=== PATIENT | male | born 1940 | race Caucasian/White ===

== ENCOUNTER 2017-09-02 21:34 | Inpatient (IN) | payer OTHER ==
[~2017-09-02] VITALS: Ht 172.7 cm; Wt 85.5 kg
[~2017-09-02 21:34] MED LIST: ACID REDUCER 1150 MG PO; AMLODIPINE BESYL5 MG PO; ASPIR 8181 M1 PO; ATORVASTATIN CA10 MG PO; CARDIZEM CD120 MG PO; LO-DOSE ASPIRIN81 M1 PO; LOPRESSOR25 MG PO; NEXIUM 24HR20 M1 PO; PEPCID AC20 M1 PO; PLAVIX75 MG PO; PRAVASTATIN SOD40 MG PO; PROTONIX40 MG PO; ZESTRIL2.5 MG PO
[2017-09-02 22:31] LABS: HEMATOCRIT 28.7 % (38.0-50.0); MCH 29.7 PG (29.0-34.0); MCHC 34.5 G/DL (30.0-36.0); MEAN PLAT.VOLUME 9.4 uM^3 (9.0-12.4); NRBC (%) 0.1 /100 WBC (0-0); PLATELET COUNT 503 K/uL (156-360); RBC DIS.WIDTH-CV 13.2 % (11.8-14.6); RBC DIS.WIDTH-SD 39.6 % (39-53); RED BLOOD COUNT 3.33 M/uL (4.00-5.50); WHITE BLOOD COUNT 19.5 K/uL (4.1-10.2)
[2017-09-02 22:32] LABS: MCV 86.2 FL (86-99)
[2017-09-02 22:36] LABS: CHLORIDE 99 mEq/L (99-109); POTASSIUM 5.3 mEq/L (3.7-5.4); SODIUM 129 mEq/L (136-147)
[2017-09-02 22:38] LABS: GLUCOSE 147 mg/dL (70-99)
[2017-09-02 22:39] LABS: ANION GAP 15 MEQ/L (2-14)
[2017-09-02 22:40] LABS: TOTAL BILIRUBIN 0.4 mg/dL (0.0-1.0)
[2017-09-02 22:42] LABS: ALKALINE PHOSPHATASE 85 IU/L (3-129); GFR ESTIMATE (CALCULATED) 20 mL/min/
[2017-09-02 22:43] LABS: UREA NITROGEN (BUN) 96 mg/dL (9-23)
[2017-09-02 22:44] LABS: DIRECT BILIRUBIN 0.2 mg/dL (0.0-0.3)
[2017-09-02 22:45] LABS: LIPASE 178 U/L (1.0-51.0)
[2017-09-02 22:46] LABS: TROP-I INTERPRETATION NEGATIVE; TROPONIN-I < 0.01 ng/mL (0.0-0.30)
[2017-09-03] MEDS ORDERED: LISINOPRIL10 MG PO (00:03)
[2017-09-03] MEDS ORDERED: LO-DOSE ASPIRIN81 M1 PO (00:05)
[2017-09-03] MEDS ORDERED: LOPRESSOR25 MG PO (00:05)
[2017-09-03] MEDS ORDERED: ACID REDUCER200 MG PO (00:10)
[2017-09-03 03:25] VITALS: BP 104/55
[2017-09-03 03:43] LABS: URIC ACID 10.9 mg/dL (3.1-9.2)
[2017-09-03 05:55] LABS: EOSINOPHIL (%) 0.2 % (0-5); HEMATOCRIT 26.6 % (38.0-50.0); IMMATURE GRANULOCYTE (%) 0.8 % (0.0-0.7); IMMATURE GRANULOCYTE COUNT 0.1 K/uL; INSTRUMENT ABS NEUTROPHIL CT 12.7 K/uL; LYMPHOCYTE COUNT 1.1 K/uL (1.0-2.8); MCH 29.6 PG (29.0-34.0); MCHC 33.5 G/DL (30.0-36.0); MCV 88.4 FL (86-99); MEAN PLAT.VOLUME 9.5 uM^3 (9.0-12.4); MONOCYTE (%) 11.6 % (3-12); MONOCYTE COUNT 1.8 K/uL (0-0.8); NEUTROPHIL (%) 80.4 % (45-76); NEUTROPHIL COUNT 12.7 K/uL (1.8-6.4); NRBC (%) 0.1 /100 WBC (0-0); PLATELET COUNT 410 K/uL (156-360); RBC DIS.WIDTH-CV 13.3 % (11.8-14.6); RBC DIS.WIDTH-SD 41.4 % (39-53); RED BLOOD COUNT 3.01 M/uL (4.00-5.50); WHITE BLOOD COUNT 15.8 K/uL (4.1-10.2)
[2017-09-03 06:17] LABS: ANION GAP 11 MEQ/L (2-14); CHLORIDE 102 MEQ/L (99-109); GFR ESTIMATE (CALCULATED) 22 mL/min/; GLUCOSE 110 mg/dL (70-99); POTASSIUM 5.2 MEQ/L (3.7-5.4); SAMPLE HEMOLYSIS CHECK 0; SAMPLE ICTERIC CHECK 0; SAMPLE LIPEMIA CHECK 0; SODIUM 131 MEQ/L (136-147); UREA NITROGEN (BUN) 94 mg/dL (9-23)
[2017-09-03 07:17] VITALS: BP 116/62
[2017-09-03 09:28] LABS: ADD MIUA? NO; BILIRUBIN NEGATIVE; BLOOD NEGATIVE; COLOR YELLOW ((YELLOW)); GLUCOSE (STRIP) NEGATIVE; KETONES NEGATIVE; LEUKOCYTES NEGATIVE; NITRITE NEGATIVE; PROTEIN (STRIP) NEGATIVE; SPECIFIC GRAVITY 1.015 (1.000-1.030); UROBILINOGEN 0.2 MG/DL (0.2-1.0)
[2017-09-03 09:52] LABS: UR CREATININE CONCENTRATION 84.2 MG/DL
[2017-09-03 14:09] VITALS: BP 106/58
[2017-09-03 22:58] VITALS: BP 113/55
[2017-09-04 06:53] LABS: ANION GAP 12 MEQ/L (2-14); CHLORIDE 113 MEQ/L (99-109); GFR ESTIMATE (CALCULATED) 30 mL/min/; GLUCOSE 84 mg/dL (70-99); POTASSIUM 4.6 MEQ/L (3.7-5.4); SAMPLE HEMOLYSIS CHECK 0; SAMPLE ICTERIC CHECK 0; SAMPLE LIPEMIA CHECK 0; SODIUM 141 MEQ/L (136-147); UREA NITROGEN (BUN) 70 mg/dL (9-23)
[2017-09-04 07:00] VITALS: BP 113/62
[2017-09-04 15:57] VITALS: BP 123/65
[2017-09-04 23:23] VITALS: BP 123/68
[2017-09-05 06:31] LABS: HEMATOCRIT 26.1 % (38.0-50.0); MCH 29.4 PG (29.0-34.0); MCHC 32.2 G/DL (30.0-36.0); MCV 91.3 FL (86-99); MEAN PLAT.VOLUME 9.2 uM^3 (9.0-12.4); PLATELET COUNT 383 K/uL (156-360); RBC DIS.WIDTH-CV 14.2 % (11.8-14.6); RBC DIS.WIDTH-SD 44.8 % (39-53); RED BLOOD COUNT 2.86 M/uL (4.00-5.50); WHITE BLOOD COUNT 8.1 K/uL (4.1-10.2)
[2017-09-05 06:59] LABS: ANION GAP 14 MEQ/L (2-14); CHLORIDE 116 MEQ/L (99-109); GFR ESTIMATE (CALCULATED) 49 mL/min/; GLUCOSE 77 mg/dL (70-99); MAGNESIUM 2.5 mg/dl (1.3-2.7); POTASSIUM 4.2 MEQ/L (3.7-5.4); SAMPLE HEMOLYSIS CHECK 0; SAMPLE ICTERIC CHECK 0; SAMPLE LIPEMIA CHECK 0; SODIUM 148 MEQ/L (136-147); UREA NITROGEN (BUN) 52 mg/dL (9-23)
[2017-09-05 07:40] VITALS: BP 138/68
[2017-09-05 15:20] VITALS: BP 135/72
[2017-09-05 23:42] VITALS: BP 144/75
[2017-09-06 05:42] LABS: HEMATOCRIT 25.6 % (38.0-50.0); MCH 29.6 PG (29.0-34.0); MCHC 32.4 G/DL (30.0-36.0); MCV 91.4 FL (86-99); PLATELET COUNT 375 K/uL (156-360); RBC DIS.WIDTH-CV 13.9 % (11.8-14.6); RBC DIS.WIDTH-SD 45.1 % (39-53)
[2017-09-06 06:01] LABS: ANION GAP 13 MEQ/L (2-14); CHLORIDE 116 MEQ/L (99-109); GFR ESTIMATE (CALCULATED) > 59 mL/min/; GLUCOSE 79 mg/dL (70-99); MAGNESIUM 2.2 mg/dl (1.3-2.7); POTASSIUM 4.1 MEQ/L (3.7-5.4); SAMPLE HEMOLYSIS CHECK 0; SAMPLE ICTERIC CHECK 0; SAMPLE LIPEMIA CHECK 0; SODIUM 147 MEQ/L (136-147); UREA NITROGEN (BUN) 36 mg/dL (9-23)
[2017-09-06 06:36] LABS: ALKALINE PHOSPHATASE 62 IU/L (3-129); ANION GAP 16 MEQ/L (2-14); CHLORIDE 114 MEQ/L (99-109); GFR ESTIMATE (CALCULATED) > 59 mL/min/; GLUCOSE 79 mg/dL (70-99); POTASSIUM 4.1 MEQ/L (3.7-5.4); SAMPLE HEMOLYSIS CHECK 0; SAMPLE ICTERIC CHECK 0; SAMPLE LIPEMIA CHECK 0; SODIUM 147 MEQ/L (136-147); TOTAL BILIRUBIN 0.4 MG/DL (0.0-1.0); UREA NITROGEN (BUN) 36 mg/dL (9-23)
[2017-09-06 07:34] VITALS: BP 137/76
[2017-09-06 15:40] VITALS: BP 124/66
[2017-09-06 23:30] VITALS: BP 113/69
[2017-09-07 07:52] VITALS: BP 128/71
[2017-09-07 10:58] LABS: HEMATOCRIT 26.4 % (38.0-50.0); MCH 29.8 PG (29.0-34.0); MCHC 32.6 G/DL (30.0-36.0); MCV 91.3 FL (86-99); PLATELET COUNT 411 K/uL (156-360); RBC DIS.WIDTH-CV 13.9 % (11.8-14.6); RBC DIS.WIDTH-SD 45.2 % (39-53); RED BLOOD COUNT 2.89 M/uL (4.00-5.50)
[2017-09-07 11:33] LABS: ALKALINE PHOSPHATASE 61 IU/L (3-129); ANION GAP 14 MEQ/L (2-14); CHLORIDE 109 MEQ/L (99-109); GFR ESTIMATE (CALCULATED) > 59 mL/min/; GLUCOSE 79 mg/dL (70-99); POTASSIUM 3.9 MEQ/L (3.7-5.4); SAMPLE HEMOLYSIS CHECK 0; SAMPLE ICTERIC CHECK 0; SAMPLE LIPEMIA CHECK 0; SODIUM 143 MEQ/L (136-147); TOTAL BILIRUBIN 0.4 MG/DL (0.0-1.0); UREA NITROGEN (BUN) 31 mg/dL (9-23)
[2017-09-07 16:00] VITALS: BP 130/81
[2017-09-07 23:18] VITALS: BP 127/73
[2017-09-08 06:03] LABS: HEMATOCRIT 25.4 % (38.0-50.0); MCH 29.5 PG (29.0-34.0); MCHC 32.7 G/DL (30.0-36.0); MCV 90.4 FL (86-99); MEAN PLAT.VOLUME 8.6 uM^3 (9.0-12.4); PLATELET COUNT 375 K/uL (156-360); RBC DIS.WIDTH-CV 13.7 % (11.8-14.6); RBC DIS.WIDTH-SD 44.8 % (39-53); RED BLOOD COUNT 2.81 M/uL (4.00-5.50); WHITE BLOOD COUNT 13.2 K/uL (4.1-10.2)
[2017-09-08 06:37] LABS: ALKALINE PHOSPHATASE 100 IU/L (3-129); ANION GAP 11 MEQ/L (2-14); CHLORIDE 110 MEQ/L (99-109); GFR ESTIMATE (CALCULATED) > 59 mL/min/; GLUCOSE 79 mg/dL (70-99); POTASSIUM 3.9 MEQ/L (3.7-5.4); SAMPLE HEMOLYSIS CHECK 0; SAMPLE ICTERIC CHECK 0; SAMPLE LIPEMIA CHECK 0; SODIUM 142 MEQ/L (136-147); UREA NITROGEN (BUN) 27 mg/dL (9-23)
[2017-09-08 07:31] VITALS: BP 120/60
[2017-09-08 16:00] VITALS: BP 130/76
[2017-09-08 22:48] VITALS: BP 128/80
[2017-09-09 06:06] LABS: EOSINOPHIL (%) 0.4 % (0-5); EOSINOPHIL COUNT 0.1 K/uL (0-0.3); HEMATOCRIT 25.1 % (38.0-50.0); IMMATURE GRANULOCYTE (%) 0.8 % (0.0-0.7); IMMATURE GRANULOCYTE COUNT 0.2 K/uL; INSTRUMENT ABS NEUTROPHIL CT 16.1 K/uL; LYMPHOCYTE COUNT 0.7 K/uL (1.0-2.8); MCHC 32.7 G/DL (30.0-36.0); MCV 88.7 FL (86-99); MONOCYTE (%) 5.6 % (3-12); NEUTROPHIL (%) 88.9 % (45-76); NEUTROPHIL COUNT 16.1 K/uL (1.8-6.4); PLATELET COUNT 385 K/uL (156-360); RBC DIS.WIDTH-CV 14.1 % (11.8-14.6); RED BLOOD COUNT 2.83 M/uL (4.00-5.50); WHITE BLOOD COUNT 18.1 K/uL (4.1-10.2)
[2017-09-09 06:18] LABS: ANION GAP 7 MEQ/L (2-14); CHLORIDE 106 MEQ/L (99-109); GFR ESTIMATE (CALCULATED) > 59 mL/min/; GLUCOSE 96 mg/dL (70-99); POTASSIUM 3.6 MEQ/L (3.7-5.4); SAMPLE HEMOLYSIS CHECK 0; SAMPLE ICTERIC CHECK 0; SAMPLE LIPEMIA CHECK 0; SODIUM 136 MEQ/L (136-147); UREA NITROGEN (BUN) 24 mg/dL (9-23)
[2017-09-09 08:23] VITALS: BP 129/76
[2017-09-09 15:27] VITALS: BP 112/73
[2017-09-09 16:59] LABS: ADD MIUA? NO; BILIRUBIN NEGATIVE; BLOOD NEGATIVE; COLOR AMBER ((YELLOW)); GLUCOSE (STRIP) NEGATIVE; KETONES NEGATIVE; LEUKOCYTES NEGATIVE; NITRITE NEGATIVE; PROTEIN (STRIP) NEGATIVE; SPECIFIC GRAVITY 1.015 (1.000-1.030); UCUL ADDED? NO
[2017-09-09 23:49] VITALS: BP 122/79
[2017-09-10 06:04] LABS: EOSINOPHIL (%) 0.2 % (0-5); HEMATOCRIT 26.2 % (38.0-50.0); IMMATURE GRANULOCYTE (%) 0.6 % (0.0-0.7); IMMATURE GRANULOCYTE COUNT 0.1 K/uL; INSTRUMENT ABS NEUTROPHIL CT 14.8 K/uL; LYMPHOCYTE COUNT 0.6 K/uL (1.0-2.8); MCH 28.1 PG (29.0-34.0); MCHC 32.4 G/DL (30.0-36.0); MCV 86.5 FL (86-99); MEAN PLAT.VOLUME 8.9 uM^3 (9.0-12.4); MONOCYTE (%) 5.5 % (3-12); MONOCYTE COUNT 0.9 K/uL (0-0.8); NEUTROPHIL (%) 90.2 % (45-76); NEUTROPHIL COUNT 14.8 K/uL (1.8-6.4); PLATELET COUNT 420 K/uL (156-360); RBC DIS.WIDTH-CV 14.1 % (11.8-14.6); RBC DIS.WIDTH-SD 43.8 % (39-53); RED BLOOD COUNT 3.03 M/uL (4.00-5.50); WHITE BLOOD COUNT 16.4 K/uL (4.1-10.2)
[2017-09-10 06:24] LABS: ANION GAP 11 MEQ/L (2-14); CHLORIDE 105 MEQ/L (99-109); GFR ESTIMATE (CALCULATED) > 59 mL/min/; POTASSIUM 3.6 MEQ/L (3.7-5.4); SAMPLE HEMOLYSIS CHECK 0; SAMPLE ICTERIC CHECK 0; SAMPLE LIPEMIA CHECK 0; SODIUM 137 MEQ/L (136-147); UREA NITROGEN (BUN) 20 mg/dL (9-23)
[2017-09-10 06:25] LABS: GLUCOSE 64 mg/dL (70-99)
[2017-09-10 07:26] VITALS: BP 126/75
[2017-09-10 15:50] VITALS: BP 132/79
[2017-09-10 23:31] VITALS: BP 151/83
[2017-09-11 00:46] VITALS: BP 139/82
[2017-09-11 06:10] LABS: EOSINOPHIL (%) 0.1 % (0-5); HEMATOCRIT 25.8 % (38.0-50.0); IMMATURE GRANULOCYTE (%) 0.7 % (0.0-0.7); IMMATURE GRANULOCYTE COUNT 0.1 K/uL; LYMPHOCYTE COUNT 0.3 K/uL (1.0-2.8); MCH 28.1 PG (29.0-34.0); MCHC 32.6 G/DL (30.0-36.0); MCV 86.3 FL (86-99); MONOCYTE (%) 4.2 % (3-12); MONOCYTE COUNT 0.8 K/uL (0-0.8); PLATELET COUNT 380 K/uL (156-360); RBC DIS.WIDTH-CV 14.2 % (11.8-14.6); RBC DIS.WIDTH-SD 43.9 % (39-53); RED BLOOD COUNT 2.99 M/uL (4.00-5.50); WHITE BLOOD COUNT 18.3 K/uL (4.1-10.2)
[2017-09-11 06:32] LABS: ANION GAP 12 MEQ/L (2-14); CHLORIDE 105 MEQ/L (99-109); GFR ESTIMATE (CALCULATED) > 59 mL/min/; GLUCOSE 46 mg/dL (70-99); POTASSIUM 3.8 MEQ/L (3.7-5.4); SAMPLE HEMOLYSIS CHECK 0; SAMPLE ICTERIC CHECK 1; SAMPLE LIPEMIA CHECK 0; SODIUM 138 MEQ/L (136-147); UREA NITROGEN (BUN) 19 mg/dL (9-23)
[2017-09-11 08:04] VITALS: BP 119/67
[2017-09-11 11:15] VITALS: BP 115/62
[2017-09-11 15:40] VITALS: BP 128/76
[2017-09-11 19:27] VITALS: BP 119/70
[2017-09-11 23:34] VITALS: BP 131/68
[2017-09-12 03:23] VITALS: BP 127/71
[2017-09-12 05:23] LABS: EOSINOPHIL (%) 0.1 % (0-5); HEMATOCRIT 24.6 % (38.0-50.0); IMMATURE GRANULOCYTE (%) 0.6 % (0.0-0.7); IMMATURE GRANULOCYTE COUNT 0.1 K/uL; INSTRUMENT ABS NEUTROPHIL CT 15.6 K/uL; LYMPHOCYTE COUNT 0.4 K/uL (1.0-2.8); MCHC 32.9 G/DL (30.0-36.0); MCV 85.1 FL (86-99); MONOCYTE (%) 5.7 % (3-12); NEUTROPHIL (%) 91.2 % (45-76); NEUTROPHIL COUNT 15.6 K/uL (1.8-6.4); PLATELET COUNT 307 K/uL (156-360); RBC DIS.WIDTH-CV 14.5 % (11.8-14.6); RBC DIS.WIDTH-SD 44.4 % (39-53); RED BLOOD COUNT 2.89 M/uL (4.00-5.50); WHITE BLOOD COUNT 17.1 K/uL (4.1-10.2)
[2017-09-12 06:10] LABS: ANION GAP 12 MEQ/L (2-14); CHLORIDE 105 MEQ/L (99-109); GFR ESTIMATE (CALCULATED) > 59 mL/min/; POTASSIUM 3.7 MEQ/L (3.7-5.4); SAMPLE HEMOLYSIS CHECK 0; SAMPLE ICTERIC CHECK 1; SAMPLE LIPEMIA CHECK 0; SODIUM 135 MEQ/L (136-147); UREA NITROGEN (BUN) 24 mg/dL (9-23)
[2017-09-12 06:11] LABS: GLUCOSE 78 mg/dL (70-99)
[2017-09-12 07:30] VITALS: BP 130/71
[2017-09-12 11:00] VITALS: BP 134/75
[2017-09-12 16:39] VITALS: BP 111/62
[2017-09-12 19:33] VITALS: BP 119/74
[2017-09-12 23:18] VITALS: BP 126/72
[2017-09-13 03:53] VITALS: BP 125/70
[2017-09-13 06:40] LABS: EOSINOPHIL (%) 0.2 % (0-5); HEMATOCRIT 23.5 % (38.0-50.0); IMMATURE GRANULOCYTE (%) 0.8 % (0.0-0.7); IMMATURE GRANULOCYTE COUNT 0.1 K/uL; LYMPHOCYTE COUNT 0.4 K/uL (1.0-2.8); MCH 28.6 PG (29.0-34.0); MCHC 33.6 G/DL (30.0-36.0); MCV 85.1 FL (86-99); MEAN PLAT.VOLUME 9.6 uM^3 (9.0-12.4); MONOCYTE (%) 6.9 % (3-12); MONOCYTE COUNT 1.1 K/uL (0-0.8); NEUTROPHIL (%) 89.2 % (45-76); NRBC (%) 0.1 /100 WBC (0-0); PLATELET COUNT 268 K/uL (156-360); RBC DIS.WIDTH-CV 14.7 % (11.8-14.6); RBC DIS.WIDTH-SD 45.3 % (39-53); RED BLOOD COUNT 2.76 M/uL (4.00-5.50); WHITE BLOOD COUNT 15.6 K/uL (4.1-10.2)
[2017-09-13 07:03] LABS: ANION GAP 13 MEQ/L (2-14); CHLORIDE 103 MEQ/L (99-109); GFR ESTIMATE (CALCULATED) 57 mL/min/; GLUCOSE 72 mg/dL (70-99); POTASSIUM 3.7 MEQ/L (3.7-5.4); SAMPLE HEMOLYSIS CHECK 0; SAMPLE ICTERIC CHECK 1; SAMPLE LIPEMIA CHECK 0; SODIUM 135 MEQ/L (136-147); UREA NITROGEN (BUN) 30 mg/dL (9-23)
[2017-09-13 07:31] VITALS: BP 119/74
[2017-09-13 09:24] LABS: DIRECT BILIRUBIN 4.3 mg/dL (0.0-0.3)
[2017-09-13 09:28] LABS: ALKALINE PHOSPHATASE 509 IU/L (3-129); TOTAL BILIRUBIN 5.8 MG/DL (0.0-1.0)
[2017-09-13 10:55] VITALS: BP 125/75
[2017-09-13 11:08] LABS: POINT-OF-CARE METER ID UU13113725
[2017-09-13 11:34] LABS: POINT-OF-CARE METER ID UU13113725
[2017-09-13 14:14] LABS: POINT-OF-CARE METER ID UU13113819
[2017-09-13 15:35] VITALS: BP 120/66
[2017-09-13 19:20] VITALS: BP 119/70
[2017-09-13 23:16] VITALS: BP 118/66
[2017-09-14] VITALS (14 sets, daily range): BP systolic 101–136; BP diastolic 61–83
[2017-09-14 06:32] LABS: PTT 54.4 SEC (25-37)
[2017-09-14 06:36] LABS: PROTHROMBIN TIME 77.3 SEC (10.2-12.9)
[2017-09-14 06:57] LABS: INTER. NORMALIZED RATIO 6.7
[2017-09-14 09:50] LABS: EOSINOPHIL (%) 0 % (0-5); HEMATOCRIT 24.2 % (38.0-50.0); IMMATURE GRANULOCYTE (%) 0.9 % (0.0-0.7); IMMATURE GRANULOCYTE COUNT 0.1 K/uL; INSTRUMENT ABS NEUTROPHIL CT 14.9 K/uL; LYMPHOCYTE COUNT 0.4 K/uL (1.0-2.8); MCH 27.6 PG (29.0-34.0); MCHC 31.8 G/DL (30.0-36.0); MCV 86.7 FL (86-99); MONOCYTE (%) 6.4 % (3-12); MONOCYTE COUNT 1.1 K/uL (0-0.8); NEUTROPHIL (%) 90.2 % (45-76); NEUTROPHIL COUNT 14.9 K/uL (1.8-6.4); NRBC (%) 0.1 /100 WBC (0-0); PLATELET COUNT 259 K/uL (156-360); RBC DIS.WIDTH-CV 14.9 % (11.8-14.6); RBC DIS.WIDTH-SD 47.4 % (39-53); RED BLOOD COUNT 2.79 M/uL (4.00-5.50); WHITE BLOOD COUNT 16.5 K/uL (4.1-10.2)
[2017-09-14 10:06] LABS: ANION GAP 10 MEQ/L (2-14); CHLORIDE 103 MEQ/L (99-109); GFR ESTIMATE (CALCULATED) 45 mL/min/; POTASSIUM 3.8 MEQ/L (3.7-5.4); SAMPLE HEMOLYSIS CHECK 0; SAMPLE ICTERIC CHECK 2; SAMPLE LIPEMIA CHECK 0; SODIUM 132 MEQ/L (136-147); UREA NITROGEN (BUN) 35 mg/dL (9-23)
[2017-09-14 10:07] LABS: GLUCOSE 99 mg/dL (70-99)
[2017-09-14 17:37] LABS: FIBRINOGEN 710 mg/dL (150-450)
[2017-09-14 18:04] LABS: D-DIMER LATEX POSITIVE
[2017-09-14 18:36] LABS: SCHISTOCYTES RARE
[2017-09-15] VITALS (29 sets, daily range): BP systolic 101–145; BP diastolic 60–98
[2017-09-15 06:27] LABS: INTER. NORMALIZED RATIO 3.5; PROTHROMBIN TIME 40.3 SEC (10.2-12.9)
[2017-09-15 06:30] LABS: PTT 41.6 SEC (25-37)
[2017-09-15 06:33] LABS: ANION GAP 12 MEQ/L (2-14); CHLORIDE 103 MEQ/L (99-109); GFR ESTIMATE (CALCULATED) 45 mL/min/; GLUCOSE 68 mg/dL (70-99); POTASSIUM 3.4 MEQ/L (3.7-5.4); SAMPLE HEMOLYSIS CHECK 0; SAMPLE ICTERIC CHECK 2; SAMPLE LIPEMIA CHECK 0; SODIUM 135 MEQ/L (136-147); UREA NITROGEN (BUN) 35 mg/dL (9-23)
[2017-09-15 07:11] LABS: RED BLOOD COUNT 2.55 M/uL (4.00-5.50); WHITE BLOOD COUNT 15.9 K/uL (4.1-10.2)
[2017-09-15 07:12] LABS: MCH 27.8 PG (29.0-34.0); MCHC 33.8 G/DL (30.0-36.0); RBC DIS.WIDTH-CV 14.9 % (11.8-14.6); RBC DIS.WIDTH-SD 44.3 % (39-53)
[2017-09-15 07:16] LABS: ABS NEUTROPHIL COUNT 15.2; BAND NEUTROPHILS 11.3 % (0-8.0); EOSINOPHIL ABS CT 0; INSTRUMENT ABS NEUTROPHIL CT 14.3 K/uL; LYMPHOCYTES 0.9 % (15.0-45.0); MEAN PLAT.VOLUME 10.4 uM^3 (9.0-12.4); NUCLEATED RBC'S 1.7; PLATELET COUNT 214 K/uL (156-360); SEG.NEUTROPHILS 84.3 % (46.0-76.0); SMUDGE CELLS 2.6
[2017-09-15 07:23] LABS: MCV 82.4 FL (86-99)
[2017-09-15 08:14] LABS: DIRECT BILIRUBIN 4.6 mg/dL (0.0-0.3); TOTAL BILIRUBIN 6.7 MG/DL (0.0-1.0)
[2017-09-15 08:15] LABS: ALKALINE PHOSPHATASE 357 IU/L (3-129)
[2017-09-15 08:21] LABS: FIBRINOGEN 632 mg/dL (150-450)
[2017-09-15 13:27] LABS: PTT 36.9 SEC (25-37)
[2017-09-15 13:51] LABS: INTER. NORMALIZED RATIO 2.1
[2017-09-15 13:52] LABS: PROTHROMBIN TIME 24.6 SEC (10.2-12.9)
[2017-09-15 15:41] LABS: METH RESISTANT S AUREUS PCR NEGATIVE (NEGATIVE)
[2017-09-15 17:43] LABS: PROBE CHECK PASS; SPECIMEN PROCESSING CONTROL PASS
[2017-09-15 21:21] LABS: ALKALINE PHOSPHATASE 324 IU/L (3-129); ANION GAP 13 MEQ/L (2-14); CHLORIDE 105 MEQ/L (99-109); GFR ESTIMATE (CALCULATED) 53 mL/min/; GLUCOSE 75 mg/dL (70-99); POTASSIUM 3.2 MEQ/L (3.7-5.4); SAMPLE HEMOLYSIS CHECK 0; SAMPLE ICTERIC CHECK 2; SAMPLE LIPEMIA CHECK 0; SODIUM 139 MEQ/L (136-147); TOTAL BILIRUBIN 6.8 MG/DL (0.0-1.0); UREA NITROGEN (BUN) 35 mg/dL (9-23)
[2017-09-15 22:09] LABS: HEMATOCRIT 19.2 % (38.0-50.0); MCH 28.1 PG (29.0-34.0); MCHC 33.9 G/DL (30.0-36.0); MCV 83.1 FL (86-99); NRBC (%) 0.1 /100 WBC (0-0); PLATELET COUNT 209 K/uL (156-360); RBC DIS.WIDTH-CV 14.9 % (11.8-14.6); RBC DIS.WIDTH-SD 44.6 % (39-53); RED BLOOD COUNT 2.31 M/uL (4.00-5.50); WHITE BLOOD COUNT 15.1 K/uL (4.1-10.2)
[2017-09-15 22:47] LABS: ANISOCYTOSIS 2+; EOSINOPHIL (%) 0.1 % (0-5); IMMATURE GRANULOCYTE (%) 0.9 % (0.0-0.7); IMMATURE GRANULOCYTE COUNT 0.1 K/uL; INSTRUMENT ABS NEUTROPHIL CT 13.6 K/uL; LYMPHOCYTE COUNT 0.5 K/uL (1.0-2.8); MACROCYTES 1+; MICROCYTOSIS 1+; MONOCYTE (%) 5.7 % (3-12); MONOCYTE COUNT 0.9 K/uL (0-0.8); NEUTROPHIL (%) 89.9 % (45-76); NEUTROPHIL COUNT 13.6 K/uL (1.8-6.4); TARGET CELLS 1+
[2017-09-15 23:18] LABS: INTER. NORMALIZED RATIO 1.9; PROTHROMBIN TIME 21.4 SEC (10.2-12.9)
[2017-09-15 23:20] LABS: PTT 34.4 SEC (25-37)
[2017-09-15 23:34] LABS: FIBRINOGEN 632 mg/dL (150-450)
[2017-09-16] VITALS (15 sets, daily range): BP systolic 117–140; BP diastolic 71–89
[2017-09-16 04:31] LABS: ADD PTT REFLEX? Y; ADD dRVVT REFLEX? Y; DRVVT Mixing Study Interp Not Indicated (()); PTT-LA 64 sec (<=40); THROMBIN TIME+ 15 sec (13-19); dRVVT Screen 52 sec (<=45)
[2017-09-16 05:24] LABS: HEMATOCRIT 25.6 % (38.0-50.0); MCH 27.8 PG (29.0-34.0); MCV 81.8 FL (86-99); RBC DIS.WIDTH-CV 14.3 % (11.8-14.6); RBC DIS.WIDTH-SD 41.5 % (39-53); WHITE BLOOD COUNT 14.4 K/uL (4.1-10.2)
[2017-09-16 05:25] LABS: INTER. NORMALIZED RATIO 1.7
[2017-09-16 05:27] LABS: PTT 32.9 SEC (25-37)
[2017-09-16 05:39] LABS: RED BLOOD COUNT 3.13 M/uL (4.00-5.50)
[2017-09-16 05:44] LABS: ALKALINE PHOSPHATASE 320 IU/L (3-129); ANION GAP 13 MEQ/L (2-14); CHLORIDE 105 MEQ/L (99-109); GFR ESTIMATE (CALCULATED) 57 mL/min/; GLUCOSE 73 mg/dL (70-99); SAMPLE HEMOLYSIS CHECK 0; SAMPLE ICTERIC CHECK 2; SAMPLE LIPEMIA CHECK 0; SODIUM 140 MEQ/L (136-147); TOTAL BILIRUBIN 7.5 MG/DL (0.0-1.0); UREA NITROGEN (BUN) 33 mg/dL (9-23)
[2017-09-16 06:06] LABS: EOSINOPHIL (%) 0.1 % (0-5); HEMATOLOGY COMMENT 1 SMEAR COMPATIBLE; IMMATURE GRANULOCYTE (%) 0.8 % (0.0-0.7); IMMATURE GRANULOCYTE COUNT 0.1 K/uL; LYMPHOCYTE COUNT 0.4 K/uL (1.0-2.8); MEAN PLAT.VOLUME 9.4 uM^3 (9.0-12.4); MONOCYTE (%) 5.8 % (3-12); MONOCYTE COUNT 0.8 K/uL (0-0.8); NEUTROPHIL (%) 90.2 % (45-76); PLATELET COUNT 185 K/uL (156-360)
[2017-09-16 06:23] LABS: FIBRINOGEN 599 mg/dL (150-450)
[2017-09-16 17:53] LABS: EOSINOPHIL (%) 0 % (0-5); HEMATOCRIT 28.3 % (38.0-50.0); IMMATURE GRANULOCYTE COUNT 0.1 K/uL; INSTRUMENT ABS NEUTROPHIL CT 12.9 K/uL; LYMPHOCYTE COUNT 0.4 K/uL (1.0-2.8); MCH 28.3 PG (29.0-34.0); MCHC 34.6 G/DL (30.0-36.0); MCV 81.8 FL (86-99); MEAN PLAT.VOLUME 10.4 uM^3 (9.0-12.4); MONOCYTE COUNT 0.9 K/uL (0-0.8); NEUTROPHIL (%) 89.8 % (45-76); NEUTROPHIL COUNT 12.9 K/uL (1.8-6.4); PLATELET COUNT 183 K/uL (156-360); RBC DIS.WIDTH-SD 43.5 % (39-53); RED BLOOD COUNT 3.46 M/uL (4.00-5.50); WHITE BLOOD COUNT 14.4 K/uL (4.1-10.2)
[2017-09-16 18:18] LABS: ALKALINE PHOSPHATASE 342 IU/L (3-129); ANION GAP 13 MEQ/L (2-14); CHLORIDE 107 MEQ/L (99-109); GFR ESTIMATE (CALCULATED) > 59 mL/min/; GLUCOSE 79 mg/dL (70-99); POTASSIUM 3.5 MEQ/L (3.7-5.4); SAMPLE HEMOLYSIS CHECK 0; SAMPLE ICTERIC CHECK 2; SAMPLE LIPEMIA CHECK 0; SODIUM 141 MEQ/L (136-147); UREA NITROGEN (BUN) 32 mg/dL (9-23)
[2017-09-16 18:19] LABS: TOTAL BILIRUBIN 9.3 MG/DL (0.0-1.0)
[2017-09-16 18:38] LABS: INTER. NORMALIZED RATIO 1.8; PROTHROMBIN TIME 21.1 SEC (10.2-12.9)
[2017-09-16 18:45] LABS: FIBRINOGEN 529 mg/dL (150-450)
[2017-09-17 05:04] VITALS: BP 120/77
[2017-09-17 06:19] LABS: EOSINOPHIL (%) 0.1 % (0-5); IMMATURE GRANULOCYTE COUNT 0.2 K/uL; INSTRUMENT ABS NEUTROPHIL CT 12.9 K/uL; LYMPHOCYTE COUNT 0.5 K/uL (1.0-2.8); MCH 28.5 PG (29.0-34.0); MCHC 34.8 G/DL (30.0-36.0); MCV 81.8 FL (86-99); MEAN PLAT.VOLUME 10.9 uM^3 (9.0-12.4); MONOCYTE COUNT 0.9 K/uL (0-0.8); NEUTROPHIL (%) 89.1 % (45-76); NEUTROPHIL COUNT 12.9 K/uL (1.8-6.4); NRBC (%) 0.1 /100 WBC (0-0); PLATELET COUNT 189 K/uL (156-360); RBC DIS.WIDTH-CV 15.2 % (11.8-14.6); RBC DIS.WIDTH-SD 44.8 % (39-53); WHITE BLOOD COUNT 14.4 K/uL (4.1-10.2)
[2017-09-17 06:45] LABS: ALKALINE PHOSPHATASE 339 IU/L (3-129); ANION GAP 11 MEQ/L (2-14); CHLORIDE 109 MEQ/L (99-109); GFR ESTIMATE (CALCULATED) > 59 mL/min/; GLUCOSE 122 mg/dL (70-99); POTASSIUM 3.2 MEQ/L (3.7-5.4); SAMPLE HEMOLYSIS CHECK 0; SAMPLE ICTERIC CHECK 2; SAMPLE LIPEMIA CHECK 0; SODIUM 144 MEQ/L (136-147); TOTAL BILIRUBIN 9.9 MG/DL (0.0-1.0); UREA NITROGEN (BUN) 30 mg/dL (9-23)
[2017-09-17 07:46] VITALS: BP 122/79
[2017-09-17 08:21] LABS: FIBRINOGEN 483 mg/dL (150-450); INTER. NORMALIZED RATIO 2.2; PROTHROMBIN TIME 25.6 SEC (10.2-12.9); PTT 35.1 SEC (25-37)
[2017-09-17 11:21] VITALS: BP 121/76
[2017-09-17 16:25] VITALS: BP 131/84
[2017-09-17 18:13] LABS: EOSINOPHIL (%) 0 % (0-5); HEMATOCRIT 27.4 % (38.0-50.0); IMMATURE GRANULOCYTE (%) 1.2 % (0.0-0.7); IMMATURE GRANULOCYTE COUNT 0.2 K/uL; INSTRUMENT ABS NEUTROPHIL CT 15.3 K/uL; LYMPHOCYTE COUNT 0.3 K/uL (1.0-2.8); MCH 27.8 PG (29.0-34.0); MCHC 33.9 G/DL (30.0-36.0); MEAN PLAT.VOLUME 10.2 uM^3 (9.0-12.4); MONOCYTE (%) 3.1 % (3-12); MONOCYTE COUNT 0.5 K/uL (0-0.8); NEUTROPHIL (%) 93.7 % (45-76); NEUTROPHIL COUNT 15.3 K/uL (1.8-6.4); NRBC (%) 0.2 /100 WBC (0-0); PLATELET COUNT 188 K/uL (156-360); RBC DIS.WIDTH-CV 15.1 % (11.8-14.6); RBC DIS.WIDTH-SD 44.6 % (39-53); RED BLOOD COUNT 3.34 M/uL (4.00-5.50); WHITE BLOOD COUNT 16.3 K/uL (4.1-10.2)
[2017-09-17 18:35] LABS: ALKALINE PHOSPHATASE 366 IU/L (3-129); ANION GAP 8 MEQ/L (2-14); CHLORIDE 109 MEQ/L (99-109); GFR ESTIMATE (CALCULATED) > 59 mL/min/; GLUCOSE 176 mg/dL (70-99); POTASSIUM 3.6 MEQ/L (3.7-5.4); SAMPLE HEMOLYSIS CHECK 0; SAMPLE ICTERIC CHECK 2; SAMPLE LIPEMIA CHECK 0; SODIUM 141 MEQ/L (136-147); TOTAL BILIRUBIN 10.5 MG/DL (0.0-1.0); UREA NITROGEN (BUN) 28 mg/dL (9-23)
[2017-09-17 19:54] LABS: PROTHROMBIN TIME 34.7 SEC (10.2-12.9)
[2017-09-17 19:57] LABS: PTT 38.1 SEC (25-37)
[2017-09-17 20:00] VITALS: BP 134/83
[2017-09-17 20:17] LABS: MAGNESIUM 1.9 mg/dl (1.3-2.7); URIC ACID 5.5 mg/dL (3.1-9.2)
[2017-09-17 20:20] LABS: LACTATE DEHYDROGENASE 342 IU/L (20-246)
[2017-09-17 20:44] LABS: POINT-OF-CARE METER ID UU14314088; POINT-OF-CARE USER ID ENVMNS
[2017-09-17 23:55] VITALS: BP 118/83
[2017-09-18 04:00] VITALS: BP 137/87
[2017-09-18 07:09] VITALS: BP 130/89
[2017-09-18 08:36] LABS: EOSINOPHIL (%) 0 % (0-5); HEMATOCRIT 26.8 % (38.0-50.0); IMMATURE GRANULOCYTE COUNT 0.2 K/uL; INSTRUMENT ABS NEUTROPHIL CT 14.8 K/uL; LYMPHOCYTE COUNT 0.6 K/uL (1.0-2.8); MCH 28.6 PG (29.0-34.0); MCHC 34.7 G/DL (30.0-36.0); MCV 82.5 FL (86-99); MEAN PLAT.VOLUME 10.5 uM^3 (9.0-12.4); MONOCYTE (%) 3.2 % (3-12); MONOCYTE COUNT 0.5 K/uL (0-0.8); NEUTROPHIL (%) 92.3 % (45-76); NEUTROPHIL COUNT 14.8 K/uL (1.8-6.4); NRBC (%) 0.2 /100 WBC (0-0); PLATELET COUNT 169 K/uL (156-360); RBC DIS.WIDTH-CV 15.5 % (11.8-14.6); RBC DIS.WIDTH-SD 46.5 % (39-53); RED BLOOD COUNT 3.25 M/uL (4.00-5.50)
[2017-09-18 08:43] LABS: PROTHROMBIN TIME 46.4 SEC (10.2-12.9)
[2017-09-18 08:46] LABS: PTT 41.5 SEC (25-37)
[2017-09-18 09:12] LABS: ALKALINE PHOSPHATASE 363 IU/L (3-129); ANION GAP 8 MEQ/L (2-14); CHLORIDE 110 MEQ/L (99-109); GFR ESTIMATE (CALCULATED) 57 mL/min/; GLUCOSE 195 mg/dL (70-99); POTASSIUM 3.2 MEQ/L (3.7-5.4); SAMPLE HEMOLYSIS CHECK 0; SAMPLE ICTERIC CHECK 2; SAMPLE LIPEMIA CHECK 0; SODIUM 143 MEQ/L (136-147); TOTAL BILIRUBIN 10.9 MG/DL (0.0-1.0); UREA NITROGEN (BUN) 32 mg/dL (9-23)
[2017-09-18 09:12] LABS: MAGNESIUM 1.9 mg/dl (1.3-2.7); URIC ACID 6.7 mg/dL (3.1-9.2)
[2017-09-18 09:51] LABS: FIBRINOGEN 555 mg/dL (150-450)
[2017-09-18 11:00] VITALS: BP 144/91
[2017-09-18 15:18] VITALS: BP 142/88
[2017-09-18 19:46] LABS: EOSINOPHIL (%) 0 % (0-5); HEMATOCRIT 28.8 % (38.0-50.0); IMMATURE GRANULOCYTE (%) 0.7 % (0.0-0.7); IMMATURE GRANULOCYTE COUNT 0.1 K/uL; INSTRUMENT ABS NEUTROPHIL CT 15.6 K/uL; LYMPHOCYTE COUNT 0.4 K/uL (1.0-2.8); MCH 27.7 PG (29.0-34.0); MCHC 33.7 G/DL (30.0-36.0); MCV 82.3 FL (86-99); MONOCYTE (%) 1.5 % (3-12); MONOCYTE COUNT 0.2 K/uL (0-0.8); NEUTROPHIL (%) 95.3 % (45-76); NEUTROPHIL COUNT 15.6 K/uL (1.8-6.4); NRBC (%) 0.3 /100 WBC (0-0); PLATELET COUNT 196 K/uL (156-360); RBC DIS.WIDTH-CV 15.4 % (11.8-14.6); RBC DIS.WIDTH-SD 45.1 % (39-53); WHITE BLOOD COUNT 16.4 K/uL (4.1-10.2)
[2017-09-18 20:00] VITALS: BP 132/83
[2017-09-18 20:02] LABS: INTER. NORMALIZED RATIO 4.4; PROTHROMBIN TIME 50.6 SEC (10.2-12.9)
[2017-09-18 20:05] LABS: PTT 42.1 SEC (25-37)
[2017-09-18 20:10] LABS: ALKALINE PHOSPHATASE 318 IU/L (3-129); ANION GAP 9 MEQ/L (2-14); CHLORIDE 105 MEQ/L (99-109); GFR ESTIMATE (CALCULATED) 57 mL/min/; GLUCOSE 180 mg/dL (70-99); SAMPLE HEMOLYSIS CHECK 0; SAMPLE ICTERIC CHECK 2; SAMPLE LIPEMIA CHECK 0; SODIUM 137 MEQ/L (136-147); UREA NITROGEN (BUN) 35 mg/dL (9-23)
[2017-09-18 20:11] LABS: MAGNESIUM 1.9 mg/dl (1.3-2.7); URIC ACID 7.1 mg/dL (3.1-9.2)
[2017-09-18 23:55] VITALS: BP 125/85
[2017-09-19] VITALS (13 sets, daily range): BP systolic 107–134; BP diastolic 65–81
[2017-09-19 08:28] LABS: MCH 27.9 PG (29.0-34.0); MCHC 33.7 G/DL (30.0-36.0); MCV 82.9 FL (86-99); MEAN PLAT.VOLUME 11.5 uM^3 (9.0-12.4); NRBC (%) 0.3 /100 WBC (0-0); PLATELET COUNT 178 K/uL (156-360); RBC DIS.WIDTH-CV 15.8 % (11.8-14.6); RBC DIS.WIDTH-SD 46.8 % (39-53); RED BLOOD COUNT 3.62 M/uL (4.00-5.50)
[2017-09-19 08:43] LABS: PTT 44.5 SEC (25-37)
[2017-09-19 08:47] LABS: PROTHROMBIN TIME 52.9 SEC (10.2-12.9)
[2017-09-19 08:56] LABS: EOSINOPHIL (%) 0 % (0-5); IMMATURE GRANULOCYTE (%) 0.5 % (0.0-0.7); IMMATURE GRANULOCYTE COUNT 0.1 K/uL; INSTRUMENT ABS NEUTROPHIL CT 13.4 K/uL; LYMPHOCYTE COUNT 0.4 K/uL (1.0-2.8); MONOCYTE (%) 0.6 % (3-12); MONOCYTE COUNT 0.1 K/uL (0-0.8); NEUTROPHIL (%) 95.9 % (45-76); NEUTROPHIL COUNT 13.4 K/uL (1.8-6.4)
[2017-09-19 09:04] LABS: ALKALINE PHOSPHATASE 378 IU/L (3-129); ANION GAP 9 MEQ/L (2-14); CHLORIDE 110 MEQ/L (99-109); GFR ESTIMATE (CALCULATED) 49 mL/min/; GLUCOSE 158 mg/dL (70-99); LACTATE DEHYDROGENASE 357 IU/L (20-246); MAGNESIUM 1.9 mg/dl (1.3-2.7); POTASSIUM 3.5 MEQ/L (3.7-5.4); SAMPLE HEMOLYSIS CHECK 0; SAMPLE ICTERIC CHECK 2; SAMPLE LIPEMIA CHECK 0; TOTAL BILIRUBIN 11.8 MG/DL (0.0-1.0); UREA NITROGEN (BUN) 39 mg/dL (9-23); URIC ACID 7.5 mg/dL (3.1-9.2)
[2017-09-19 09:06] LABS: SODIUM 144 MEQ/L (136-147)
[2017-09-19 09:12] LABS: INTER. NORMALIZED RATIO 4.6
[2017-09-19 20:01] LABS: HEMATOCRIT 28.3 % (38.0-50.0); MCH 28.4 PG (29.0-34.0); MCHC 34.3 G/DL (30.0-36.0); MEAN PLAT.VOLUME 11.7 uM^3 (9.0-12.4); NRBC (%) 0.1 /100 WBC (0-0); PLATELET COUNT 144 K/uL (156-360); RBC DIS.WIDTH-CV 15.9 % (11.8-14.6); RBC DIS.WIDTH-SD 47.1 % (39-53); RED BLOOD COUNT 3.41 M/uL (4.00-5.50); WHITE BLOOD COUNT 13.9 K/uL (4.1-10.2)
[2017-09-19 20:19] LABS: PTT 40.7 SEC (25-37)
[2017-09-19 20:26] LABS: MAGNESIUM 1.9 mg/dl (1.3-2.7); URIC ACID 7.3 mg/dL (3.1-9.2)
[2017-09-19 20:27] LABS: INTER. NORMALIZED RATIO 3.1; PROTHROMBIN TIME 35.4 SEC (10.2-12.9)
[2017-09-19 20:28] LABS: EOSINOPHIL (%) 0 % (0-5); IMMATURE GRANULOCYTE (%) 0.4 % (0.0-0.7); IMMATURE GRANULOCYTE COUNT 0.1 K/uL; INSTRUMENT ABS NEUTROPHIL CT 13.5 K/uL; LYMPHOCYTE COUNT 0.3 K/uL (1.0-2.8); MONOCYTE (%) 0.5 % (3-12); MONOCYTE COUNT 0.1 K/uL (0-0.8); NEUTROPHIL (%) 96.6 % (45-76); NEUTROPHIL COUNT 13.5 K/uL (1.8-6.4)
[2017-09-19 21:02] LABS: ALKALINE PHOSPHATASE 351 IU/L (3-129); ANION GAP 10 MEQ/L (2-14); CHLORIDE 111 MEQ/L (99-109); GFR ESTIMATE (CALCULATED) 49 mL/min/; GLUCOSE 149 mg/dL (70-99); POTASSIUM 3.7 MEQ/L (3.7-5.4); SAMPLE HEMOLYSIS CHECK 0; SAMPLE ICTERIC CHECK 2; SAMPLE LIPEMIA CHECK 0; SODIUM 145 MEQ/L (136-147); TOTAL BILIRUBIN 12.4 MG/DL (0.0-1.0); UREA NITROGEN (BUN) 41 mg/dL (9-23)
[2017-09-20 03:37] VITALS: BP 123/72
[2017-09-20 07:46] VITALS: BP 109/72
[2017-09-20 09:30] LABS: MCH 28.5 PG (29.0-34.0); MCHC 34.6 G/DL (30.0-36.0); MCV 82.3 FL (86-99); MEAN PLAT.VOLUME 11.6 uM^3 (9.0-12.4); PLATELET COUNT 111 K/uL (156-360); RBC DIS.WIDTH-CV 15.9 % (11.8-14.6); RBC DIS.WIDTH-SD 47.8 % (39-53); RED BLOOD COUNT 3.16 M/uL (4.00-5.50); WHITE BLOOD COUNT 9.9 K/uL (4.1-10.2)
[2017-09-20 09:39] LABS: PTT 40.5 SEC (25-37)
[2017-09-20 10:08] LABS: MAGNESIUM 1.8 mg/dl (1.3-2.7)
[2017-09-20 10:09] LABS: EOSINOPHIL (%) 0 % (0-5); IMMATURE GRANULOCYTE (%) 0.6 % (0.0-0.7); IMMATURE GRANULOCYTE COUNT 0.1 K/uL; INSTRUMENT ABS NEUTROPHIL CT 9.5 K/uL; LYMPHOCYTE COUNT 0.3 K/uL (1.0-2.8); MONOCYTE (%) 0.4 % (3-12); NEUTROPHIL (%) 96.3 % (45-76); NEUTROPHIL COUNT 9.5 K/uL (1.8-6.4); PLAT.SUFFICIENCY DECREASED
[2017-09-20 10:13] LABS: FIBRINOGEN 454 mg/dL (150-450)
[2017-09-20 10:16] LABS: ALKALINE PHOSPHATASE 287 IU/L (3-129); ANION GAP 12 MEQ/L (2-14); CHLORIDE 110 MEQ/L (99-109); GFR ESTIMATE (CALCULATED) 57 mL/min/; GLUCOSE 126 mg/dL (70-99); POTASSIUM 3.5 MEQ/L (3.7-5.4); SAMPLE HEMOLYSIS CHECK 0; SAMPLE ICTERIC CHECK 3; SAMPLE LIPEMIA CHECK 0; SODIUM 146 MEQ/L (136-147); TOTAL BILIRUBIN 12.9 MG/DL (0.0-1.0); UREA NITROGEN (BUN) 41 mg/dL (9-23)
[2017-09-20 11:22] VITALS: BP 100/66
[2017-09-20 16:05] VITALS: BP 118/85
[2017-09-20 19:35] VITALS: BP 106/71
[2017-09-20 20:12] LABS: INTER. NORMALIZED RATIO 3.7; PROTHROMBIN TIME 42.4 SEC (10.2-12.9)
[2017-09-20 20:14] LABS: HEMATOCRIT 29.8 % (38.0-50.0); MCH 28.4 PG (29.0-34.0); MCHC 34.6 G/DL (30.0-36.0); MCV 82.1 FL (86-99); MEAN PLAT.VOLUME 11.7 uM^3 (9.0-12.4); PLATELET COUNT 126 K/uL (156-360); RED BLOOD COUNT 3.63 M/uL (4.00-5.50); WHITE BLOOD COUNT 4.3 K/uL (4.1-10.2)
[2017-09-20 20:15] LABS: PTT 45.2 SEC (25-37)
[2017-09-20 20:25] LABS: MAGNESIUM 1.9 mg/dl (1.3-2.7); URIC ACID 6.9 mg/dL (3.1-9.2)
[2017-09-20 20:26] LABS: ALKALINE PHOSPHATASE 270 IU/L (3-129); ANION GAP 10 MEQ/L (2-14); CHLORIDE 112 MEQ/L (99-109); GFR ESTIMATE (CALCULATED) 53 mL/min/; GLUCOSE 136 mg/dL (70-99); POTASSIUM 3.9 MEQ/L (3.7-5.4); SAMPLE HEMOLYSIS CHECK 0; SAMPLE ICTERIC CHECK 2; SAMPLE LIPEMIA CHECK 0; SODIUM 144 MEQ/L (136-147); TOTAL BILIRUBIN 11.1 MG/DL (0.0-1.0); UREA NITROGEN (BUN) 44 mg/dL (9-23)
[2017-09-20 20:46] LABS: ABS NEUTROPHIL COUNT 4.2; ANISOCYTOSIS 2+; BAND NEUTROPHILS 2.6 % (0-8.0); EOSINOPHIL ABS CT 0; HYPOCHROMASIA 2+; LYMPHOCYTES 0.9 % (15.0-45.0); MACROCYTES 2+; PLAT.SUFFICIENCY DECREASED; POIKILOCYTOSIS 2+; SEG.NEUTROPHILS 94.7 % (46.0-76.0); TARGET CELLS 1+
[2017-09-21] VITALS (7 sets, daily range): BP systolic 98–107; BP diastolic 63–67
[2017-09-21 09:19] LABS: HEMATOCRIT 27.4 % (38.0-50.0); MCH 27.2 PG (29.0-34.0); MCHC 33.2 G/DL (30.0-36.0); MCV 81.8 FL (86-99); NRBC (%) 0.2 /100 WBC (0-0); RBC DIS.WIDTH-CV 15.9 % (11.8-14.6); RBC DIS.WIDTH-SD 47.3 % (39-53); RED BLOOD COUNT 3.35 M/uL (4.00-5.50); WHITE BLOOD COUNT 11.8 K/uL (4.1-10.2)
[2017-09-21 09:28] LABS: PTT 49.7 SEC (25-37)
[2017-09-21 09:32] LABS: PROTHROMBIN TIME 53.6 SEC (10.2-12.9)
[2017-09-21 09:33] LABS: INTER. NORMALIZED RATIO 4.7
[2017-09-21 09:42] LABS: MAGNESIUM 1.9 mg/dl (1.3-2.7); URIC ACID 7.4 mg/dL (3.1-9.2)
[2017-09-21 09:44] LABS: ALKALINE PHOSPHATASE 252 IU/L (3-129); ANION GAP 11 MEQ/L (2-14); CHLORIDE 110 MEQ/L (99-109); GFR ESTIMATE (CALCULATED) 39 mL/min/; GLUCOSE 146 mg/dL (70-99); POTASSIUM 3.8 MEQ/L (3.7-5.4); SAMPLE HEMOLYSIS CHECK 0; SAMPLE ICTERIC CHECK 3; SAMPLE LIPEMIA CHECK 0; SODIUM 143 MEQ/L (136-147); TOTAL BILIRUBIN 12.5 MG/DL (0.0-1.0); UREA NITROGEN (BUN) 53 mg/dL (9-23)
[2017-09-21 10:20] LABS: ABS NEUTROPHIL COUNT 11.3; ANISOCYTOSIS 2+; EOSINOPHIL ABS CT 0.1; EOSINOPHILS 0.9 % (0-5.0); HYPOCHROMASIA 1+; INSTRUMENT ABS NEUTROPHIL CT 11.3 K/uL; LYMPHOCYTES 3.5 % (15.0-45.0); MACROCYTES 2+; MEAN PLAT.VOLUME 12.3 uM^3 (9.0-12.4); PLAT.SUFFICIENCY DECREASED; PLATELET COUNT 97 K/uL (156-360); SEG.NEUTROPHILS 95.6 % (46.0-76.0)
[2017-09-21 12:45] LABS: GASTRIC OCCULT BLD. POSITIVE; INTERNAL CONTROL VALID? YES
[2017-09-21 18:22] LABS: HAPTOGLOBIN+ 374 mg/dL (43-212)
[2017-09-22 04:00] VITALS: BP 102/68
[2017-09-22 07:07] VITALS: BP 93/63
[2017-09-22] MEDS ORDERED: HALOPERIDOL5 MG/1 M1 IV (15:39)
[2017-09-22] MEDS ORDERED: Compazine IV (15:39)
[2017-09-22] MEDS ORDERED: FENTANYL1 EAC1 TD (16:03)
[2017-09-22] MEDS ORDERED: HALDOL2 MG PO (16:03)
[2017-09-22] MEDS ORDERED: COMPAZINE5 MG PO (16:03)
== END 2017-09-22 17:18 | disposition hospice, home (50) | DRG 682 ==
LOC: EME 21:34 → 4WEST 09-03 01:54 → 4EAST 09-03 01:54 → 5EAST 09-03 01:54 → EDOF 09-03 01:54 → ENRESERV 09-03 01:55 → 5EAST 09-03 03:17 → ENRESERV 09-15 11:47 → 5EAST 09-15 15:15 → 4WEST 09-15 15:28 → ENRESERV 09-16 14:04 → 4EAST 09-16 17:51 → ENRESERV 09-18 22:35 → CANRESERV 09-18 22:39 → ENRESERV 09-18 22:39 → 4EAST 09-22 09:43 → CANRESERV 09-22 10:54 → ENRESERV 09-22 10:54 → 4EAST 09-22 17:18
PROVIDERS: Emergency Medicine; Hospitalist; Internal Medicine; Internal Medicine Gastroenterology; Internal Medicine Medical Oncology; Nurse Practitioner Acute Care; Radiology Diagnostic Radiology; Student in an Organized Health Care Education/Training Program
DX: N17.9 Acute kidney failure, unspecified (principal); D65 Disseminated intravascular coagulation [defibrination syndrome]; K31.1 Adult hypertrophic pyloric stenosis; C78.6 Secondary malignant neoplasm of retroperitoneum and peritoneum; C77.2 Secondary and unspecified malignant neoplasm of intra-abdominal lymph nodes; K31.5 Obstruction of duodenum; Z51.5 Encounter for palliative care; Z66 Do not resuscitate; J96.01 Acute respiratory failure with hypoxia; K83.1 Obstruction of bile duct; J98.11 Atelectasis; C18.2 Malignant neoplasm of ascending colon; C78.4 Secondary malignant neoplasm of small intestine; E87.2 Acidosis; E87.1 Hypo-osmolality and hyponatremia; E87.0 Hyperosmolality and hypernatremia; C79.89 Secondary malignant neoplasm of other specified sites; K59.00 Constipation, unspecified; N18.2 Chronic kidney disease, stage 2 (mild); E86.0 Dehydration; K82.8 Other specified diseases of gallbladder; E78.00 Pure hypercholesterolemia, unspecified; D50.9 Iron deficiency anemia, unspecified; I48.91 Unspecified atrial fibrillation; K21.9 Gastro-esophageal reflux disease without esophagitis; I25.82 Chronic total occlusion of coronary artery; I25.10 Atherosclerotic heart disease of native coronary artery without angina pectoris; I12.9 Hypertensive chronic kidney disease with stage 1 through stage 4 chronic kidney disease, or unspecified chronic kidney disease; Z90.79 Acquired absence of other genital organ(s); Z90.49 Acquired absence of other specified parts of digestive tract; Z87.442 Personal history of urinary calculi; Z85.46 Personal history of malignant neoplasm of prostate; Z85.048 Personal history of other malignant neoplasm of rectum, rectosigmoid junction, and anus; Z79.01 Long term (current) use of anticoagulants; I25.2 Old myocardial infarction; Z80.0 Family history of malignant neoplasm of digestive organs; Z82.49 Family history of ischemic heart disease and other diseases of the circulatory system; Z80.51 Family history of malignant neoplasm of kidney
CPT/HCPCS: 71010; 71020; 71275; 74000; 74176; 74250; 74360; 76705; 80048; 80048 91; 80053; 80069; 80076; 81003; 82271; 82436; 82570; 82948; 83010 90; 83605; 83615; 83690; 83735; 84100; 84132 91; 84133; 84156; 84300; 84484; 84550; 85025; 85025 91; 85027; 85378; 85379; 85384; 85597 90; 85610; 85613 90; 85670 90; 85730; 85730 90; 86850; 86900; 86901; 86920; 87040; 87081; 87086; 87641; 88305; 93005; 93306; 93970; 94799; 99281; 99285; C1757; C2625; C9113; J0330; J0640; J0692; J0696; J0780; J1100; J1170; J1630; J1650; J1940; J2060; J2270; J2405; J2469; J2710; J3010; J3480; J7030; J7050; J7120; J9190; P9016; P9017